=== PATIENT | female | born 1950 | race Caucasian/White ===

== ENCOUNTER 2020-08-01 20:36 | Emergency (ER) | payer MEDICARE, OTHER ==
[~2020-08-01] VITALS: Ht 152.4 cm; Wt 83.9 kg
[~2020-08-01 20:36] MED LIST: IBUPROFEN 600600 M1 PO; NORCO 5-325 TA1 EACH PO; PRINIVIL20 MG PO; PYRIDIUM200 MG PO
[2020-08-01] MEDS ORDERED: TRAMADOL 50 MG50 MG PO (20:48)
[2020-08-01] MEDS ORDERED: SYNTHROID125 MC1 PO (20:48)
[2020-08-01 21:11] LABS: URINE BILIRUBIN NEGATIVE (Negative); URINE BLOOD TRACE (Negative); URINE CLARITY CLEAR; URINE COLOR YELLOW; URINE GLUCOSE-RANDOM NEGATIVE (Negative); URINE KETONES NEGATIVE (Negative); URINE LEUKOCYTES-REFLEX NEGATIVE (Negative); URINE NITRITE-REFLEX NEGATIVE (Negative); URINE PROTEIN NEGATIVE (Negative); URINE SPECIFIC GRAVITY 1.015 (1.005-1.030); URINE UROBILINOGEN 0.2 E.U./dl (0.2-1.0)
[2020-08-01] MEDS ORDERED: PHENAZOPYRIDIN200 M2 PO (21:21)
[2020-08-01 21:30] VITALS: BP 148/98
== END 2020-08-01 21:30 | disposition home or self-care (01) ==
LOC: M.ERS 20:36
PROVIDERS: Emergency Medicine
DX: R33.9 Retention of urine, unspecified (principal); I10 Essential (primary) hypertension